=== PATIENT | female | born 1995 | race African-American/Black ===

== ENCOUNTER 2022-02-12 22:35 | Emergency (ER) | payer SELFPAY ==
[~2022-02-12] VITALS: Ht 157.5 cm; Wt 83.9 kg
[2022-02-12] MEDS ORDERED: DOXYCYCLINE HY100 MG PO (22:41)
[2022-02-12] MEDS ORDERED: CEFTRIAXONE 500 MG VIAL IM ONE (22:45)
[2022-02-12] MEDS ORDERED: CEFTRIAXONE 500 MG VIAL ONE (22:59)
[2022-02-12] MEDS ORDERED: LIDOCAINE HCL 1% LOCAL INJ 20 ML VIAL ONE (22:59)
== END 2022-02-12 23:15 | disposition home or self-care (01) ==
LOC: FSED 22:38
DX: Z20.2 Contact with and (suspected) exposure to infections with a predominantly sexual mode of transmission (principal)
CPT/HCPCS: 99282; J0696; J2001